=== PATIENT | male | born 1950 | race Caucasian/White ===

== ENCOUNTER → 2019-02-02 | Outpatient (CLI) | payer MEDICARE, OTHER ==
[~2019-02-02] MED LIST: ONDA4TAB11 PO
--- NOTE | 2019-02-02 15:17 | Diagnostic Imaging Report ---
INDICATION: Abdominal pain and constipation. TIME OF EXAM: 3:06 PM. COMPARISON: No prior studies are available for comparison. FINDINGS: There is no free air. Bowel gas pattern is nonobstructed. There is moderate stool right colon. No pathologic calcifications are seen. IMPRESSION: No acute abnormality is detected. Dictated by: Dictated on workstation # [id number]
== END ==
LOC: RAD FS 14:58
PROVIDERS: ATTEND Nurse Practitioner
DX: K59.00 Constipation, unspecified (principal); R10.9 Unspecified abdominal pain
CPT/HCPCS: 74019

== ENCOUNTER 2019-02-08 01:38 | Emergency (ER) | payer MEDICARE, OTHER ==
[~2019-02-08] VITALS: Ht 177.8 cm; Wt 85.5 kg
[2019-02-08] MEDS ORDERED: ONDANSETRON 4 MG (ZOFRAN) ORAL DISSOLVE TAB PO STA (02:04)
--- NOTE | 2019-02-08 02:10 | NUR ---
zofran given to pt, ice chips given and instructed to try after zofran dissolves
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
[2019-02-08] MEDS ORDERED: RX-ONDANSETRON 4 MG ODT (ZOFRAN) PPK #4 PO PRN (02:30)
[2019-02-08] MEDS ORDERED: ONDA4TAB11 PO (02:42)
[2019-02-08 02:58] VITALS: BP 122/58
== END 2019-02-08 02:58 | disposition home or self-care (01) ==
LOC: EDUNIT# 01:38 → ER FS 01:39
DX: F11.23 Opioid dependence with withdrawal (principal); R42 Dizziness and giddiness; E86.0 Dehydration; I10 Essential (primary) hypertension
CPT/HCPCS: 99283

== ENCOUNTER → 2022-11-01 | Outpatient (CLI) | payer MEDICARE, OTHER ==
--- NOTE | 2022-11-01 11:50 | Diagnostic Imaging Report ---
PROCEDURE: MR imaging cervical spine without contrast. TECHNIQUE: Multiplanar, multisequence MR imaging of the cervical spine was performed without contrast. INDICATION: Neck pain. COMPARISON: None. FINDINGS: Postsurgical changes from prior posterior fusion from C1 to C4. Straightening of the cervical lordosis. Mild anterolisthesis of C2-C3 at and C6-C7. Mild retrolisthesis of C5-C6. No acute fracture. Moderate multilevel degenerative disc desiccation and disc height loss. No marrow replacing process to suggest malignancy. The spinal cord is normal in signal intensity. On the limited views of the cranial cavity and brain, the cerebellum and mignon have normal morphology and signal characteristics. No Chiari malformation. Mucosal thickening seen within the sphenoid sinus. No soft tissue abnormality. Normal signal voids are present in the vertebral arteries. C2-3: No significant spinal canal stenosis or neural foraminal narrowing. C3-4: No significant spinal canal stenosis or neural foraminal narrowing. C4-5: Disc osteophyte complex. Uncovertebral facet arthropathy. Moderate spinal canal narrowing. Mild left neural foraminal narrowing. No right neural foraminal narrowing. C5-6: Disc osteophyte complex. Uncovertebral and facet arthropathy. Moderate to severe spinal canal stenosis. Severe left and moderate right neuroforaminal stenosis. C6-7: Disc osteophyte complex. Uncovertebral and facet arthropathy. Severe spinal canal stenosis. Severe bilateral neural foraminal stenosis. C7-T1: Disc bulge. Uncovertebral and facet arthropathy. Moderate spinal canal stenosis. Moderate bilateral neural foraminal stenosis. IMPRESSION: Advanced multilevel degenerative changes of the cervical spine with severe spinal canal stenosis at C6-C7 and moderate to severe spinal canal stenosis at C5-C6. Moderate spinal canal stenosis at C4-C5 and C7-T1. Additional multilevel degenerative changes of the cervical spine described level by level above. Dictated by: Dictated on workstation # [id number]
== END ==
LOC: RAD 09:28
PROVIDERS: ATTEND Family Medicine
DX: M47.812 Spondylosis without myelopathy or radiculopathy, cervical region (principal); M48.02 Spinal stenosis, cervical region; M48.03 Spinal stenosis, cervicothoracic region; Z98.1 Arthrodesis status; M43.12 Spondylolisthesis, cervical region; M25.78 Osteophyte, vertebrae; M50.23 Other cervical disc displacement, cervicothoracic region
CPT/HCPCS: 72141